=== PATIENT | female | born 1970 | race Two or more races ===

== ENCOUNTER 2022-12-04 20:57 | Emergency (ER) | payer OTHER ==
[~2022-12-04] VITALS: Ht 160 cm; Wt 82.6 kg
[~2022-12-04 20:57] MED LIST changes: -METFORMIN HCL500 MG
[2022-12-04] MEDS ORDERED: METFORMIN HCL500 MG (21:09)
== END 2022-12-05 00:17 | disposition home or self-care (01) ==
LOC: ER 20:57
DX: H60.8X1 Other otitis externa, right ear (principal); E11.9 Type 2 diabetes mellitus without complications; Z79.84 Long term (current) use of oral hypoglycemic drugs; I10 Essential (primary) hypertension

== ENCOUNTER → 2022-12-04 | Emergency (ER) | payer OTHER ==
[~2022-12-04] VITALS: Ht 160 cm; Wt 82.6 kg
[~2022-12-04] MED LIST: COZAAR100 MG PO; METFORMIN HCL500 MG; SYNTHROID50 MCG PO
== END | disposition home or self-care (01) ==
LOC: ER 02:05
DX: H92.01 Otalgia, right ear (principal)